=== PATIENT | male | born 2000 | race Caucasian/White ===

== ENCOUNTER 2022-10-10 18:49 | Inpatient (IN) ==
--- NOTE | 2022-10-10 19:21 | Emergency Department Note ---
Impression & Plan Bipolar disorder, Noncompliance, Cannabis abuse ED Provider Note ED Provider Note NAME: FLIP FAUSTIN AGE:22 SEX: Male : 2000 ARRIVES VIA: EMS INFORMANT: Patient ED PROVIDER(s): Lorene Nicholas DO CHIEF COMPLAINT: Mental health evaluation HPI: This is a 22-year-old male brought in as a 302 petition by ems. Patient lives with family and states he does not know why police showed up at his house or why he was brought in. Patient states he and his father argue about his use of marijuana which he thinks he needs for his knee pain and his anxiety. Patient states he vapes, does not use alcohol. 302 petitioning statement filled out by father states patient has been, increasingly aggressive and violent at home. Using marijuana daily. Patient states at times he also blacks out. Patient admits to using marijuana just prior to arrival. PAST MEDICAL HISTORY:See Below PAST SURGICAL HISTORY:See Below FAMILY HISTORY:See Below SOCIAL HISTORY:See Below HOME MEDICATIONS:See Below ALLERGIES:See Below VITALS:See Below PHYSICAL EXAMINATION: GENERAL: alert, well nourished, no distress, non-toxic EYE EXAM: normal conjunctiva, PERRL and EOM's grossly intact OROPHARYNX: no exudate, no erythema, lips, buccal mucosa, and tongue normal and mucous membranes are moist NECK: supple, no nuchal rigidity, no adenopathy, non-tender LUNGS: Clear to auscultation. Normal chest wall mechanics, no w/r/r HEART: no murmurs, S1 normal and S2 normal ABDOMEN: abdomen soft, non-tender, normo-active bowel sounds, no masses, no rebound or guarding. BACK: Back is symmetrical on inspection and there is no deformity, no midline tenderness, no CVA tenderness. SKIN: no rashes, petechiae, orbruising UPPER EXTREMITIES: upper extremities are grossly normal. FROM, nml pulses b/l. LOWER EXTREMITIES: No pitting edema. FROM, nml pulses b/l. NEURO EXAM: Normal sensorium, cranial nerves II-XII grossly intact, normal speech, no facial droop,nogross weakness of arms, no gross weakness of legs. Gross sensation intact. No ataxia. Vital Signs: reviewed and remarkable Differential Diagnosis: Differential diagnoses considered include mood disorder, infection, hypoglycemia, electrolyte abnormalities, cardiac sources, intracerebral event, toxicologic, neurologic, as well as others. MEDICAL DECISION MAKING: This is a 22-year-old male brought in with 302 petition statement by parents due to increased aggressive and violent behavior at home. Upon additional evaluation by case management they did find the patient does carry a prior diagnosis of bipolar disorder, typically manic, and has been noncompliant with medications. Patient admits to daily marijuana use but does not have a medical marijuana card. Patient is not currently seeing any mental health providers. Patient became aggressive and agitated here. Was given medication as he could not be verbally de-escalated or redirected. 302 upheld by me. Case signed out at change of shift to Dr. Villanueva. I do not suspect other occult medical etiology contributing to his current behavior given reassuring labs and imaging. Consultation(s): [] ER Treatment Provided: See below 2200: Patient became combative and agitated, screaming and yelling, spitting on staff. He was unable to be verbally de-escalated or redirected. He was unwilling to calm down and return to his room. Patient was given Ativan IM ini tially per my instruction after receiving a phone call from the nurse. While I was in speaking with other patients, I was contacted that the patient had continued to become aggressive, and again could not be redirected. Patient given additional IM Haldol and placed in four-point locked restraints. 2243: Patient still agitated despite being in four-point restraints. Additional IM meds added. Amira, casework specialist states she did refer to [facility] and found that the patient does carry a prior diagnosis of manic bipolar disorder. Patient appears to have been off any mental health medications since the fall. 2300: 302 signed by me. Diagnostics Interpreted By Me: -ECG: Normal sinus rhythm at 95, normal axis, normal QRS and QTc, nonspecific ST/T wave changes -Cardiac Monitoring: An order was placed for continuous cardiac monitoring. The monitor shows a rate of [] with [] rhythm. -Laboratory studies: As stated above and show below. -Imaging studies: [] Triage Nursing Note Reviewed Prior/Outside Records Reviewed Procedures: [] Critical Care: [] Past Med/Surg History Social History Smoking Status: Current every day smoker Tobacco Type: E-cigarettes / Vaping Preferred Language: Serbian Feels Safe at Home: Yes Results & Data (ED) Vital Signs Vital Signs - 24 hr 10/10/22 18:57 10/10/22 22:30 10/10/22 22:58 Temperature 36.5 C Temperature Source Oral Pulse Rate 122 H Pulse Rate [Right Radial] 90 98 H Pulse Rhythm Regular Pulse Rhythm [Right Radial] Regular Regular Pulse Strength Normal Respiratory Rate 22 20 14 Respiratory Effort / Characteristics Non-Labored Spontaneous Non-Labored Spontaneous Respiratory Depth Normal Normal Normal Respiratory Pattern Regular Regular Blood Pressure 168/117 H Blood Pressure [Right Arm] 96/76 L 97/67 L Blood Pressure Mean 134 Blood Pressure Mean [Right Arm] 82 77 Blood Pressure Position Sitting Pulse Oximetry 100 94 94 Oxygen Delivery Method Room Air Room Air Room Air Sepsis Recent Fever Within 48 Hours No Sepsis New/Unexplained Change in Mental Status No Sepsis Action Taken by Nursing No Action Required Laboratory Data 10/10/22 19:30 10/10/22 19:30 Lab Results 10/10/22 10/10/22 10/10/22 Range/Units 19:04 19:04 19:30 WBC 8.46 (4.8-10.8) K/ul RBC 5.18 (4.70-6.10) M/uL Hgb 16.6 (14.0-18.0) g/dl Hct 46.9 (42.0-52.0) % MCV 90.5 (80.0-100.0) fL MCH 32.0 (25.0-34.0) pg MCHC 35.4 (32.0-36.0) g/dL RDW Std Deviation 42.9 (36.4-46.3) fL RDW Coeff of Solitario 13.0 (11.5-14.5) % Plt Count 311 (130-400) K/uL MPV 9.0 L (9.4-12.4) fL Immature Gran % (Auto) 0.1 % Neut % (Auto) 60.5 % Lymph % (Auto) 30.7 % Alpine % (Auto) 6.5 % Eos % (Auto) 1.8 % Baso % (Auto) 0.4 % Neut # (Auto) 5.12 (1.40-6.50) K/uL Lymph # (Auto) 2.60 (1.2-3.4) K/uL Alpine # (Auto) 0.55 (0.11-0.59) K/uL Eos # (Auto) 0.15 (0-0.50) K/uL Baso # (Auto) 0.03 (0-0.2) K/uL Immature Gran # (Auto) 0.01 (0.01-0.20) K/uL Sodium (136-145) mmol/L Potassium (3.5-5.1) mmol/L Chloride (98-107) mmol/L Carbon Dioxide (21-32) mmol/L Anion Gap (3-11) BUN (6-23) mg/dl Creatinine (0.6-1.4) mg/dl Est Cr Clr Drug Dosing Est GFR ( Amer) ml/min Est GFR (Non-Af Amer) ml/min BUN/Creatinine Ratio (10-20) Glucose (70-99(Fasting)) mg/dl Calcium (8.5-10.1) mg/dl Total Bilirubin (0.2-1.0) mg/dl AST (13-39) U/L ALT (7-52) U/L Alkaline Phosphatase (34-104) U/L Total Protein (6.0-8.3) gm/dl Albumin (3.4-5.0) gm/dl Globulin (2.5-4.0) gm/dl Albumin/Globulin Ratio (0.9-2) TSH (0.300-4.500) uIu/ml Free T4 (0.61-1.60) ng/dl Urine Color Yellow Urine Appearance Clear (Clear) Urine pH 6.5 (4.5-7.5) Ur Specific Norton 1.025 (1.000-1.030) Urine Protein Trace H (Negative) Urine Glucose (UA) Negative (Negative) Urine Ketones Trace H (Negative) Urine Blood Negative (Negative) Urine Nitrite Negative (Negative) Urine Bilirubin Negative (Negative) Urine Urobilinogen Negative (Negative) Ur Leukocyte Esterase Negative (Negative) Urine WBC (Auto) 1-5 (0-5) /hpf Urine RBC (Auto) 0-4 (0-4) /hpf U Hyaline Cast (Auto) 5-10 H (0-5) /lpf U Epithel Cells (Auto) 10-20 H (0-5) /lpf Urine Bacteria (Auto) Negative (Negative) Salicylates (3.0-30) mg/dl Urine Opiates Screen Neg (Neg) Ur Methadone, Qual Neg (Neg) Acetaminophen (10-30) ug/ml Urine Barbiturates Neg (Neg) Ur Phencyclidine (PCP) Neg (Neg) U Amphetamin/Meth Scrn Neg (Neg) MDMA (Ecstasy) Screen Neg (Neg) U Benzodiazepines Scrn Neg (Neg) Ur Cocaine Metabolite Neg (Neg) U Marijuana (THC) Screen Pos H (Neg) Ethyl Alcohol mg/dL (<10.0) mg/dl 10/10/22 10/10/22 10/10/22 Range/Units 19:30 19:30 19:30 WBC (4.8-10.8) K/ul RBC (4.70-6.10) M/uL Hgb (14.0-18.0) g/dl Hct (42.0-52.0) % MCV (80.0-100.0) fL MCH (25.0-34.0) pg MCHC (32.0-36.0) g/dL RDW Std Deviation (36.4-46.3) fL RDW Coeff of Solitario (11.5-14.5) % Plt Count (130-400) K/uL MPV (9.4-12.4) fL Immature Gran % (Auto) % Neut % (Auto) % Lymph % (Auto) % Alpine % (Auto) % Eos % (Auto) % Baso % (Auto) % Neut # (Auto) (1.40-6.50) K/uL Lymph # (Auto) (1.2-3.4) K/uL Alpine # (Auto) (0.11-0.59) K/uL Eos # (Auto) (0-0.50) K/uL Baso # (Auto) (0-0.2) K/uL Immature Gran # (Auto) (0.01-0.20) K/uL Sodium 141 (136-145) mmol/L Potassium 3.9 (3.5-5.1) mmol/L Chloride 103 (98-107) mmol/L Carbon Dioxide 28 (21-32) mmol/L Anion Gap 10 (3-11) BUN 12 (6-23) mg/dl Creatinine 1.07 (0.6-1.4) mg/dl Est Cr Clr Drug Dosing Not Reportable Est GFR ( Amer) 114.4 ml/min Est GFR (Non-Af Amer) 98.7 ml/min BUN/Creatinine Ratio 11.2 (10-20) Glucose 120 H (70-99(Fasting)) mg/dl Calcium 9.5 (8.5-10.1) mg/dl Total Bilirubin 1.0 (0.2-1.0) mg/dl AST 25 (13-39) U/L ALT 20 (7-52) U/L Alkaline Phosphatase 57 (34-104) U/L Total Protein 7.5 (6.0-8.3) gm/dl Albumin 4.7 (3.4-5.0) gm/dl Globulin 2.8 (2.5-4.0) gm/dl Albumin/Globulin Ratio 1.7 (0.9-2) TSH 0.209 L (0.300-4.500) uIu/ml Free T4 1.19 (0.61-1.60) ng/dl Urine Color Urine Appearance (Clear) Urine pH (4.5-7.5) Ur Specific Norton (1.000-1.030) Urine Protein (Negative) Urine Glucose (UA) (Negative) Urine Ketones (Negative) Urine Blood (Negative) Urine Nitrite (Negative) Urine Bilirubin (Negative) Urine Urobilinogen (Negative) Ur Leukocyte Esterase (Negative) Urine WBC (Auto) (0-5) /hpf Urine RBC (Auto) (0-4) /hpf U Hyaline Cast (Auto) (0-5) /lpf U Epithel Cells (Auto) (0-5) /lpf Urine Bacteria (Auto) (Negative) Salicylates < 3.0 L (3.0-30) mg/dl Urine Opiates Screen (Neg) Ur Methadone, Qual (Neg) Acetaminophen < 3 L (10-30) ug/ml Urine Barbiturates (Neg) Ur Phencyclidine (PCP) (Neg) U Amphetamin/Meth Scrn (Neg) MDMA (Ecstasy) Screen (Neg) U Benzodiazepines Scrn (Neg) Ur Cocaine Metabolite (Neg) U Marijuana (THC) Screen (Neg) Ethyl Alcohol mg/dL (<10.0) mg/dl 10/10/22 Range/Units 19:30 WBC (4.8-10.8) K/ul RBC (4.70-6.10) M/uL Hgb (14.0-18.0) g/dl Hct (42.0-52.0) % MCV (80.0-100.0) fL MCH (25.0-34.0) pg MCHC (32.0-36.0) g/dL RDW Std Deviation (36.4-46.3) fL RDW Coeff of Solitario (11.5-14.5) % Plt Count (130-400) K/uL MPV (9.4-12.4) fL Immature Gran % (Auto) % Neut % (Auto) % Lymph % (Auto) % Alpine % (Auto) % Eos % (Auto) % Baso % (Auto) % Neut # (Auto) (1.40-6.50) K/uL Lymph # (Auto) (1.2-3.4) K/uL Alpine # (Auto) (0.11-0.59) K/uL Eos # (Auto) (0-0.50) K/uL Baso # (Auto) (0-0.2) K/uL Immature Gran # (Auto) (0.01-0.20) K/uL Sodium (136-145) mmol/L Potassium (3.5-5.1) mmol/L Chloride (98-107) mmol/L Carbon Dioxide (21-32) mmol/L Anion Gap (3-11) BUN (6-23) mg/dl Creatinine (0.6-1.4) mg/dl Est Cr Clr Drug Dosing Est GFR ( Amer) ml/min Est GFR (Non-Af Amer) ml/min BUN/Creatinine Ratio (10-20) Glucose (70-99(Fasting)) mg/dl Calcium (8.5-10.1) mg/dl Total Bilirubin (0.2-1.0) mg/dl AST (13-39) U/L ALT (7-52) U/L Alkaline Phosphatase (34-104) U/L Total Protein (6.0-8.3) gm/dl Albumin (3.4-5.0) gm/dl Globulin (2.5-4.0) gm/dl Albumin/Globulin Ratio (0.9-2) TSH (0.300-4.500) uIu/ml Free T4 (0.61-1.60) ng/dl Urine Color Urine Appearance (Clear) Urine pH (4.5-7.5) Ur Specific Norton (1.000-1.030) Urine Protein (Negative) Urine Glucose (UA) (Negative) Urine Ketones (Negative) Urine Blood (Negative) Urine Nitrite (Negative) Urine Bilirubin (Negative) Urine Urobilinogen (Negative) Ur Leukocyte Esterase (Negative) Urine WBC (Auto) (0-5) /hpf Urine RBC (Auto) (0-4) /hpf U Hyaline Cast (Auto) (0-5) /lpf U Epithel Cells (Auto) (0-5) /lpf Urine Bacteria (Auto) (Negative) Salicylates (3.0-30) mg/dl Urine Opiates Screen (Neg) Ur Methadone, Qual (Neg) Acetaminophen (10-30) ug/ml Urine Barbiturates (Neg) Ur Phencyclidine (PCP) (Neg) U Amphetamin/Meth Scrn (Neg) MDMA (Ecstasy) Screen (Neg) U Benzodiazepines Scrn (Neg) Ur Cocaine Metabolite (Neg) U Marijuana (THC) Screen (Neg) Ethyl Alcohol mg/dL < 10.0 (<10.0) mg/dl Administered Medications Discontinued Medications Acetaminophen (Acetaminophen 325 Mg Tab) 650 mg PO NOW STA Stop: 10/10/22 21:41 Last Admin: 10/10/22 22:02 Dose: Not Given Documented By: BEZ Haloperidol Lactate (Haloperidol Lactate 5 Mg/Ml 1 Ml Vial) Confirm Administered Dose 5 mg .ROUTE .[facility] Stop: 10/10/22 22:11 Last Admin: 10/10/22 22:14 Dose: 5 mg Documented By: BEZ Lorazepam (Lorazepam 1 Mg Tab) 2 mg PO NOW STA Stop: 10/10/22 21:41 Last Admin: 10/10/22 22:03 Dose: Not Given Documented By: BEZ Lorazepam (Lorazepam 2 Mg/1 Ml Vial) 2 mg IM NOW STA Stop: 10/10/22 21:46 Last Admin: 10/10/22 22:02 Dose: 2 mg Documented By: BEZ Lorazepam (Lorazepam 2 Mg/1 Ml Vial) 2 mg IM NOW STA Stop: 10/10/22 22:45 Last Admin: 10/10/22 22:48 Dose: Not Given Documented By: BEZ Imaging Data Radiologist's Impression: Head CT 10/10/22 19:14 CT OF THE HEAD WITHOUT CONTRAST CLINICAL HISTORY: Syncope. COMPARISON STUDY: No previous studies for comparison. CT DOSE: 537.48 mGy.cm TECHNIQUE: Helical axial images of the head were obtained without IV contrast. Automated exposure control was utilized for the study. A dose lowering technique was utilized adhering to the principles of ALARA. FINDINGS: No acute intracranial hemorrhage, midline shift or mass effect is present. The ventricular system is unremarkable. The basal cisterns are patent. No extra-axial collections are present. There are no findings to suggest acute dural sinus thrombosis or acute territorial infarct. There is no calvarial fracture. Visualized portions of the sinuses and mastoid air cells are clear. IMPRESSION: No acute intracranial findings. ACT 112: Negative or not required by law. Electronically signed by: Eloy Lala M.D. 10/10/2022 7:57 PM Discharge Plan Visit Data Chief Complaint: Mental Health Evaluation ED Provider: Lorene Nicholas Discharge Problem: Bipolar disorder, Noncompliance, Cannabis abuse Patient Disposition: Still a Patient Condition: Good Forms Stand Alone Forms: [facility], Suicide Prevention Resources Referrals Referrals: PCP,NO [Primary Care Provider] -
[2022-10-10 19:26] LABS: Appearance Urine Clear (Clear); Bacteria Urine Automated Negative (Negative); Bilirubin Urine Negative (Negative); Blood Urine Negative (Negative); Color Urine Yellow; Glucose Urine UA Negative (Negative); Ketones Urine Trace (Negative); Leukocyte Esterase Urine Negative (Negative); Nitrite Urine Negative (Negative); Protein Urine Trace (Negative); RBC Urine Automated 0-4 /hpf (0-4); Specific Gravity Urine 1.025 (1.000-1.030); Urobilinogen Urine Negative (Negative); pH Urine 6.5 (4.5-7.5)
[2022-10-10 19:49] LABS: Amphetamines+Metham, Urine Neg (Neg); Barbiturates, Urine Neg (Neg); Benzodiazepine, Urine Neg (Neg); Cocaine, Urine Neg (Neg); MDMA (Ecstacy), Urine Neg (Neg); Methadone, Urine Neg (Neg); Opiate, Urine Neg (Neg); Phencyclidine, Urine Neg (Neg)
--- NOTE | 2022-10-10 19:59 | CT Scan Report ---
CT OF THE HEAD WITHOUT CONTRAST CLINICAL HISTORY: Syncope. COMPARISON STUDY: No previous studies for comparison. CT DOSE: 537.48 mGy.cm TECHNIQUE: Helical axial images of the head were obtained without IV contrast. Automated exposure con trol was utilized for the study. A dose lowering technique was utilized adhering to the principles o f ALARA. FINDINGS: No acute intracranial hemorrhage, midline shift or mass effect is present. The ventricular system is unremarkable. The basal cisterns are patent. No extra-axial collections are present. There are no findings to suggest acute dural sinus thrombosis or acute territorial infarct. There is no eliazar varial fracture. Visualized portions of the sinuses and mastoid air cells are clear. IMPRESSION: No acute intracranial findings. ACT 112: Negative or not required by law. Electronically signed by: Eloy Lala M.D. 10/10/2022 7:57 PM
[2022-10-10 20:04] LABS: Basophils # (auto) 0.03 K/uL (0-0.2); Basophils % (auto) 0.4 %; Eosinophils # (auto) 0.15 K/uL (0-0.50); Eosinophils % (auto) 1.8 %; Hematocrit (blood only) 46.9 % (42.0-52.0); Hemoglobin 16.6 g/dl (14.0-18.0); Immature Granulocytes # (auto) 0.01 K/uL (0.01-0.20); Immature Granulocytes % (auto) 0.1 %; Lymphocytes % (auto) 30.7 %; Mean Corpuscular Hgb Conc 35.4 g/dL (32.0-36.0); Mean Corpuscular Volume 90.5 fL (80.0-100.0); Monocytes # (auto) 0.55 K/uL (0.11-0.59); Monocytes % (auto) 6.5 %; Neutrophils # (auto) 5.12 K/uL (1.40-6.50); Neutrophils % (auto) 60.5 %; Platelet Count 311 K/uL (130-400); RDW Standard Deviation 42.9 fL (36.4-46.3); Red Blood Count 5.18 M/uL (4.70-6.10); White Blood Count 8.46 K/ul (4.8-10.8)
[2022-10-10 20:25] LABS: Albumin Level 4.7 gm/dl (3.4-5.0); Anion Gap 10 (3-11); Calcium 9.5 mg/dl (8.5-10.1); Carbon Dioxide 28 mmol/L (21-32); Chloride 103 mmol/L (98-107); Potassium 3.9 mmol/L (3.5-5.1); Sodium 141 mmol/L (136-145)
[2022-10-10 20:31] LABS: Alanine Aminotransferase 20 U/L (7-52); Albumin Globulin Ratio 1.7 (0.9-2); Alkaline Phosphatase 57 U/L (34-104); Aspartate Aminotransferase 25 U/L (13-39); BUN Creatinine Ratio 11.2 (10-20); Blood Urea Nitrogen 12 mg/dl (6-23); Est GFR (African American) 114.4 ml/min; Est GFR (Non-African American) 98.7 ml/min; Globulin 2.8 gm/dl (2.5-4.0); Glucose 120 mg/dl (70-99(Fasting)); Total Protein 7.5 gm/dl (6.0-8.3)
[2022-10-10 20:33] LABS: Acetaminophen < 3 ug/ml (10-30); Salicylate < 3.0 mg/dl (3.0-30)
[2022-10-10 20:39] LABS: Thyroid Stimulating Hormone 0.209 uIu/ml (0.300-4.500)
[2022-10-10 21:12] LABS: T4 Free Thyroxine 1.19 ng/dl (0.61-1.60)
[2022-10-10] MEDS ORDERED: LORazepam 1 MG TAB PO STA (21:40)
[2022-10-10] MEDS ORDERED: ACETAMINOPHEN 325 MG TAB PO STA (21:40)
[2022-10-10] MEDS ORDERED: LORazepam 2 MG/1 ML VIAL IM STA ×2 (21:45→22:44)
[2022-10-10] MEDS ORDERED: HALOPERIDOL LACTATE 5 MG/ML 1 ML VIAL ONE (22:10)
--- NOTE | 2022-10-11 04:20 | Emergency Department Note ---
ED Visit Note ED psychiatric observation note Patient is under 302 for bipolar and kristopher received Haldol and Ativan and restraints and is now not restrained There were no issues during the emergency department shift supervisor observation time Disposition is still pending due to a bed search .
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
--- NOTE | 2022-10-11 09:59 | Electrocardiogram Report ---
Test Reason : Blood Pressure : / mmHG Vent. Rate : 095 BPM Atrial Rate : 095 BPM P-R Int : 124 ms QRS Dur : 090 ms QT Int : 328 ms P-R-T Axes : 086 085 046 degrees QTc Int : 412 ms Poor data quality, interpretation may be adversely affected Normal sinus rhythm Possible Left atrial enlargement Borderline ECG No previous ECGs available Confirmed by Jose Gaston ([id number]) on 10/11/2022 9:59:26 AM Referred By: REFERRED SELF Confirmed By:Jose Gaston
[2022-10-11] MEDS ORDERED: NICOTINE 14 MG/24 HR PATCH TD SCH ×2 (13:00→19:00)
--- NOTE | 2022-10-11 14:29 | Emergency Department Note ---
ED Visit Note 1428: Signout from Dr. Lynn. 22-year-old male with drug abuse with suicidal or homicidal ideation history of bipolar disorder. Patient 302. Medically cleared. Awaiting placement. 1919: Patient admitted to [facility]. .
[2022-10-11] MEDS ORDERED: OLANZapine ZYDIS 5 MG ORALLY DIS. TAB PO STA (17:53)
[2022-10-11] MEDS ORDERED: BISMUTH SUBSALICYLATE LIQD 236 ML PO PRN (19:42)
[2022-10-11] MEDS ORDERED: ACETAMINOPHEN 325 MG TAB PO PRN (19:42)
[2022-10-11] MEDS ORDERED: hydrOXYzine HCl 25 MG TAB PO PRN (19:42)
[2022-10-11] MEDS ORDERED: SODIUM CHLORIDE 0.65% NA SOLN 45 ML (OCEAN) PRN (19:42)
[2022-10-11] MEDS ORDERED: MAGNESIUM HYDROXIDE SUSP 30 ML UDC PO PRN (19:42)
[2022-10-11] MEDS ORDERED: Patient's ALLERGY Info needs ENTERED SCH (19:45)
[2022-10-11] MEDS: hydrOXYzine HCl 25 MG TAB PO PRN (21:52)
[2022-10-11] MEDS: OLANZapine ZYDIS 5 MG ORALLY DIS. TAB PO PRN (21:52)
[2022-10-12] MEDS ORDERED: NICOTINE 14 MG/24 HR PATCH TD SCH (09:00)
[2022-10-12] MEDS: ALUMINUM/MAGNESIUM SUSP 30 ML UDC PO PRN ×2 (09:35→20:06)
[2022-10-12] MEDS ORDERED: BENZONATATE 100 MG CAPSULE PO PRN (11:33)
[2022-10-12] MEDS: NICOTINE POLACRILEX 2 MG GUM MT PRN ×3 (11:51→19:13)
--- NOTE | 2022-10-12 12:35 | History & Physical ---
Date of Service October 12, 2022 Impression / Recommendations (1) Bipolar I disorder, most recent episode manic, severe with psychotic features: (2) Nicotine use disorder: (3) Cannabis use disorder: Plan Based on initial response to oral olanzapine given in the ED, will start olanza pine 10 mg PO BID, continuing olanzapine ODT 5 mg or IM 5 mg Q6HR PRN kristopher or psychosis Will need to provide substantial nicotine replacement to prevent withdrawal, but pt will accept only gum so this may be only partially effective Suicide Risk Level Suicide Risk Level: Moderate (q15 min suicide checks) Risk Factors Assessment Male: Yes : Yes Do You Have Access To A Gun?: No (bro has gun but has secured) Health Problems: No Mental Health Diagnoses: Yes Substance Use Disorders: Yes Previous Attempt: No Previous Psychiatric Hospitalization: Yes Protective Factors Assessment Employed: No (Quit job last week, according to pt's Dad) Supportive Family: Yes Psychiatric History Identifying Data FLIP FAUSTIN is a 22-year-old M who currently lives with his mother, father, and older brother, has a history of schizoaffective disorder, and was admitted on 10/11/22 19:21 on a 302 involuntary commitment for kristopher and aggression. Chief Complaint "The FBI had no busines tying me to a bed!". History of Present Illness 22 y/o man with a history of bipolar disorder who has been "vaping" a great deal with the intent of "getting at least 60 mg of nicotine" per day, believing that this helps him think more clearly and to stay awake longer. He has also been using cannabis heavily as nonprescribed "medical marijuana" for knee pain. He stopped medication "a long time ago" because he "didn't need it". He hasn't slept much at all for the past 6 days and arguments with his father over the vaping and cannabis have been escalating until he made threats. He reports that "the FBI broke down the door" and took him to a cell where they tied him to a bed and injected him with medication. Later he acknowledged it could have been local police who "knocked on the door then pushed in" and, for all he knows, might have broken it. He readily acknowledges bitter arguments with his father but doesn't agree that anyone could think he was threatening. ED notes clearly document threatening, aggressive behavior including spitting at staff. Pt did agree last night to oral olanzapine which appeared to help him deescalate and to get some sleep. He is amenable to continuing it and says he'll do anything we recommend except take risperidone, which he says caused a hand tremor. Pt presents as excited and elevated, at times expansive and at times irritable. He is very talkative with decreased latency of speech, increased rate and duration, and is a bit loud but not shouting. 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 It is in the process of developing "[email or web address]". 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 He is somewhat evasive about whether he lives on his own or at home (he lives at home) or whether he's attending college or not (he's not, saying he completed a bachelor's degree in 2 years). Past Psychiatric History Previous Psych History: Carries diagnosis of Bipolar I Disorder but not in treatment recently Current Psychiatric Diagnosis: Bipolar 1, manic episodes Previous Psych Admissions: 2 previous admissions in [place], 1 in [place], [place] Do You Have Access To A Gun?: No (bro has gun but has secured) History of Previous Suicide Attempt: No Past Medication Trials: risperidone reported to have caused hand tremor Allergies Allergy/AdvReac Type Severity Reaction Status Date / Time No Known Allergies Allergy Unverified 10/11/22 19:47 Family History Family History of: Anxiety and Bipolar Family Mental Health History Comment: Reports father has bipolar disorder Alcohol History Hx of Alcohol Use Over the Past 12 Months: Yes (1-2x weekly, just turned 22) AUDIT Total Score: 1 Smoking Use Have You Smoked or Used Tobacco Products in the Last 30 Days: Yes tobacco type: e-cigarettes Smoking Status: Current every day smoker Smoking packs per day: 1 Substance History Hx of Prescription Med Misuse Over the Past 12 Months: No (Unknown, patient not cooperative, unable to assess) Hx of Over the Counter Med Misuse Over the Past 12 Months: No Hx of Inhalent Misuse Over the Past 12 Months: No Hx of Organic Substance Use Over the Past 12 Months: Yes (Daily marijuana vaping, according to pt's Dad and +for marijuana) Hx of Illegal Substances/Street Drug Use Over Past 12 Months: Yes Problems as a Result of Past Substance Use: None Identified Problems as a Result of Past Substance Use Comments: Unknown, patient not cooperative, unable to assess using cannabis "heavily" Personal History Living Arrangements: Home Highest Grade Completed: High School Graduate Highest Grade Completed Comment: states he completed high school 6 months early 2 years, "Advanced BA degree" wants to go back to school to further education for ph.d (?) Marital Status: Single Number Of Children: 0 Beliefs That Will Affect Care: None Patient History Social History Smoking Status: Current every day smoker Tobacco Type: E-cigarettes / Vaping Preferred Language: Tajik Communication Ability: Effective Associate Professor Of Psychology Required: No Beliefs That Will Affect Care: None Feels Safe at Home: Yes Gender Identity: Male Assistive Devices: Glasses Physical Exam Psychiatric: Orientation: alert and oriented x 3 Apperance: appropriately dressed and appropriately groomed Eye Contact: + fair eye contact Motor Behavior: + psychomotor agitation Speech: + pressured speech Affect: + labile affect Mood: + irritable mood Thought Process: + circumstantial thought process and + flight of ideas Thought Content: + persecution grandiosity Suicidal Thoughts: denies suicidal thoughts Homicidal Thoughts: denies homicidal thoughts Hallucinations: no auditory hallucinations and no visual hallucinations Cognition: recent memory grossly intact and remote memory grossly intact; + attention not intact Estimated Intelligence: average estimated intelligence Insight: + impaired insight Judgment: + impaired judgement Vital Signs (Past 24 Hours): Last Vital Signs Temp 36.4 C L 10/12/22 06:46 Pulse 48 L 10/12/22 06:47 Resp 16 10/12/22 06:46 BP 115/77 10/12/22 06:47 Pulse Ox 98 10/11/22 05:47 O2 Del Method 10/11/22 05:47 Exam Statement: A physical exam was performed in the ED by Dr. Nicholas for the purposes of medical clearance. I accept that physical as correct and adequate for the purposes of the inpatient physical exam. Results & Data ([facility]) Laboratory Results Laboratory Results - last 24 hr 10/11/22 16:13 SARS-CoV-2, RNA, NAAT NEGATIVE Current Inpatient Medications Current Inpatient Medications: Current Inpatient Medications Acetaminophen (Acetaminophen 325 Mg Tab) 650 mg PO Q4H PRN PRN Reason: Headache or Minor Fever Stop: 11/10/22 19:41 Al Hydrox/Mg Hydrox/Simethicone (Aluminum/Magnesium Susp 30 Ml Udc) 30 ml PO Q4H PRN PRN Reason: GI Upset Stop: 11/10/22 19:41 Last Admin: 10/12/22 09:35 Dose: 30 ml Benzonatate (Benzonatate 100 Mg Capsule) 100 mg PO TID PRN PRN Reason: Cough Stop: 11/11/22 11:32 Bismuth Subsalicylate (Bismuth Subsalicylate Liqd 236 Ml) 15 ml PO PRN PRN PRN Reason: Loose Stool Stop: 11/10/22 19:41 Hydroxyzine HCl (Hydroxyzine Hcl 25 Mg Tab) 50 mg PO HSZ PRN PRN Reason: Insomnia Stop: 11/10/22 19:41 Last Admin: 10/11/22 21:52 Dose: 50 mg Hydroxyzine HCl (Hydroxyzine Hcl 25 Mg Tab) 25 mg PO Q4H PRN PRN Reason: Anxiety Stop: 11/10/22 19:41 Magnesium Hydroxide (Magnesium Hydroxide Susp 30 Ml Udc) 30 ml PO DAILY PRN PRN Reason: Constipation Stop: 11/10/22 19:41 Menthol (Cough Drop (Sugar Free) Huy 24 Huy/1 Box) 1 huy BUCCAL Q2HWA PRN PRN Reason: Sore Throat Stop: 11/11/22 11:32 Nicotine Polacrilex (Nicotine Polacrilex 2 Mg Gum) 2 piece MT PRN PRN PRN Reason: Nicotine Withdrawal Stop: 11/11/22 11:31 Last Admin: 10/12/22 11:51 Dose: 2 piece Olanzapine (Olanzapine Zydis 5 Mg Orally Dis. Tab) 5 mg PO Q6 PRN PRN Reason: kristopher, psychosis Stop: 11/10/22 19:42 Last Admin: 10/11/22 21:52 Dose: 5 mg Olanzapine (Olanzapine Zydis 10 Mg Orally Dis. Tab) 10 mg PO BID [place] Stop: 11/11/22 11:44 Last Admin: 10/12/22 11:52 Dose: 10 mg Sodium Chloride (Sodium Chloride 0.65% Na Soln 45 Ml ([place])) 1 - 2 sprays NA PRN PRN PRN Reason: Nasal Dryness/Congestion Stop: 11/10/22 19:41 Last Admin: 10/12/22 07:29 Dose: 1 sprays
[2022-10-12] MEDS: OLANZapine ZYDIS 5 MG ORALLY DIS. TAB PO PRN (14:55)
[2022-10-12] MEDS: COUGH DROP (SUGAR FREE) LOZ 24 LOZ/1 BOX BUCCAL PRN ×2 (15:25→16:45)
[2022-10-12] MEDS: hydrOXYzine HCl 25 MG TAB PO PRN (21:11)
[2022-10-12 21:22] LABS: Marijuana Quant, GCMS Urine 1502 ng/mL (<5)
[2022-10-13] MEDS: NICOTINE POLACRILEX 2 MG GUM MT PRN ×4 (07:04→19:55)
[2022-10-13] MEDS: COUGH DROP (SUGAR FREE) LOZ 24 LOZ/1 BOX BUCCAL PRN ×3 (07:55→22:02)
--- NOTE | 2022-10-13 09:10 | Psychiatric Progress Note ---
Date of Service October 13, 2022 Impression / Recommendations Impression 22 year old with a history of BPAD who was admitted for acute kristopher with aggression and decreased sleep on 302 commitment. Diagnostically consistent with acute kristopher d/t BPAD, may also be component of nicotine withdrawal given significant vaping use prior to admission. The patient is deemed unstable and requires psychiatric hospitalization for diagnostic clarification, safety and stabilization, medication management and development of further coping skills. MNPR due to acute kristopher with poor boundaries with peers 10/13/2022: remains hyperverbal with significant grandiosity and flight of ideas. Sleep improving a bit with olanzapine and he's tolerating this well. Will need fasting lipid panel in a few days once better able to tolerate this. Discussed medication treatment options in detail including various mood stabilizers including olanzapine, lithium, depakote, alternative antipsychotics. Discussed risks, benefits and alternatives. Patient would like to start and consented to depakote for acute kristopher andf to continue with olanzapine for mood stabilization. Reviewed side effects including but not limited to: movement (TD, NMS), cardiac (QTc prolongation), and metabolic (stroke, insulin resistance) and necessity for fasting lipid and glucose labwork and AIMS done with score of 0 and liver damage/side effects with depakote and need for routine monitoring. Baseline labs of CBC with diff, LFTs, electrolytes, and weight were preformed and WNL. (1) Bipolar I disorder, most recent episode manic, severe with psychotic features: (2) Nicotine use disorder: (3) Cannabis use disorder: Plan 10/13/22: Start Deapkote DR 250mg BID. Continue olanzapine. Will get fasting lipid panel and glucose in a few days with Depakote level check. 10/12/22: Based on initial response to oral olanzapine given in the ED, will start olanzapine 10 mg PO BID, continuing olanzapine ODT 5 mg or IM 5 mg Q6HR PRN kristopher or psychosis Will need to provide substantial nicotine replacement to prevent withdrawal, but pt will accept only gum so this may be only partially effective Suicide Risk Level Suicide Risk Level: Moderate (q15 min suicide checks) (denies SI but mood lability with kristopher. Agrees to let nursing know if he feels unsafe or unable to remain safe ) Risk Factors Assessment Male: Yes : Yes Do You Have Access To A Gun?: No (bro has gun but has secured) Health Problems: No Mental Health Diagnoses: Yes Substance Use Disorders: Yes Previous Attempt: No Previous Psychiatric Hospitalization: Yes Protective Factors Assessment Employed: No (Quit job last week, according to pt's Dad) Supportive Family: Yes Interval History Identifying Information FLIP FAUSTIN is a 22-year-old M who currently lives with his mother, father, an d older brother, has a history of schizoaffective disorder, and was admitted on 10/11/22 19:21 on a 302 involuntary commitment for kristopher and aggression. Chief Complaint "I'm accepted to [facility] but I could also go to [place] or [facility], I've given research pitches to Rodrigo Raymundo". 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 Hyperverbal with non-stop speech but able to interrupt. Accepting po olanzapine. 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 Very intrusive with peers as desires to talk non-stop. Attending groups but requires freq re-direction. Feels he needs more nicotine replacement due to high amount of vaping in outpatient setting, frustrated that he could not get nicotine gum overnight. He likes the olanzapine, feels it has resolved the "depersonalization" sense he had before coming to the hospital of "being a spectator of my own body". Physical Exam Psychiatric Orientation: alert and oriented x 3 Apperance: appropriately dressed and appropriately groomed Eye Contact: + fair eye contact Motor Behavior: steady gait and station and + psychomotor agitation (walking and moving a lot) Speech: + pressured speech (hyperverbal ) Affect: + labile affect Mood: + anxious mood Thought Process: + circumstantial thought process and + flight of ideas Thought Content: + paranoid and + delusions (grandiose) Suicidal Thoughts: denies suicidal thoughts Homicidal Thoughts: denies homicidal thoughts Hallucinations: no auditory hallucinations and no visual hallucinations Cognition: recent memory grossly intact and remote memory grossly intact; + attention not intact Estimated Intelligence: average estimated intelligence Insight: + impaired insight Judgment: + impaired judgement Vital Signs (Past 24 Hours) Last Vital Signs Temp 36.4 C L 10/13/22 06:44 Pulse 54 L 10/13/22 06:45 Resp 18 10/13/22 06:44 BP 128/82 10/13/22 06:45 Pulse Ox 98 10/11/22 05:47 O2 Del Method 10/11/22 05:47 Results & Data ([facility]) Laboratory Results Laboratory Results - last 24 hr 10/10/22 19:04 U Marijuana THC Carboxy 1502 H Drug Screen Comment SEE NOTE Current Inpatient Medications Current Inpatient Medications: Current Inpatient Medications Acetaminophen (Acetaminophen 325 Mg Tab) 650 mg PO Q4H PRN PRN Reason: Headache or Minor Fever Stop: 11/10/22 19:41 Al Hydrox/Mg Hydrox/Simethicone (Aluminum/Magnesium Susp 30 Ml Udc) 30 ml PO Q4H PRN PRN Reason: GI Upset Stop: 11/10/22 19:41 Last Admin: 10/12/22 20:06 Dose: 30 ml Benzonatate (Benzonatate 100 Mg Capsule) 100 mg PO TID PRN PRN Reason: Cough Stop: 11/11/22 11:32 Bismuth Subsalicylate (Bismuth Subsalicylate Liqd 236 Ml) 15 ml PO PRN PRN PRN Reason: Loose Stool Stop: 11/10/22 19:41 Hydroxyzine HCl (Hydroxyzine Hcl 25 Mg Tab) 50 mg PO HSZ PRN PRN Reason: Insomnia Stop: 11/10/22 19:41 Last Admin: 10/12/22 21:11 Dose: 50 mg Hydroxyzine HCl (Hydroxyzine Hcl 25 Mg Tab) 25 mg PO Q4H PRN PRN Reason: Anxiety Stop: 11/10/22 19:41 Magnesium Hydroxide (Magnesium Hydroxide Susp 30 Ml Udc) 30 ml PO DAILY PRN PRN Reason: Constipation Stop: 11/10/22 19:41 Menthol (Cough Drop (Sugar Free) Huy 24 Huy/1 Box) 1 huy BUCCAL Q2HWA PRN PRN Reason: Sore Throat Stop: 11/11/22 11:32 Last Admin: 10/13/22 07:55 Dose: 1 huy Nicotine Polacrilex (Nicotine Polacrilex 2 Mg Gum) 2 piece MT PRN PRN PRN Reason: Nicotine Withdrawal Stop: 11/11/22 11:31 Last Admin: 10/13/22 07:04 Dose: 2 piece Olanzapine (Olanzapine Zydis 5 Mg Orally Dis. Tab) 5 mg PO Q6 PRN PRN Reason: kristopher, psychosis Stop: 11/10/22 19:42 Last Admin: 10/12/22 14:55 Dose: 5 mg Olanzapine (Olanzapine Zydis 10 Mg Orally Dis. Tab) 10 mg PO BID [place] Stop: 11/11/22 11:44 Last Admin: 10/13/22 07:46 Dose: 10 mg Sodium Chloride (Sodium Chloride 0.65% Na Soln 45 Ml ([place])) 1 - 2 sprays NA PRN PRN PRN Reason: Nasal Dryness/Congestion Stop: 11/10/22 19:41 Last Admin: 10/12/22 07:29 Dose: 1 sprays Mental Health & Subst Abuse Tx Therapist Name of Therapist: none Metal Pourer Name of Metal Pourer: none Post Discharge Appointments Primary Care Physician Name Of Family Doctor/PCP: none
[2022-10-13] MEDS: DIVALPROEX DELAY RELEASE 250 MG TABEC PO SCH ×2 (12:19→20:51)
[2022-10-14] MEDS: ALUMINUM/MAGNESIUM SUSP 30 ML UDC PO PRN (01:50)
[2022-10-14] MEDS: NICOTINE POLACRILEX 2 MG GUM MT PRN ×4 (05:25→18:55)
[2022-10-14] MEDS: DIVALPROEX DELAY RELEASE 250 MG TABEC PO SCH (07:33)
[2022-10-14] MEDS: OLANZapine ZYDIS 5 MG ORALLY DIS. TAB PO PRN (09:24)
--- NOTE | 2022-10-14 09:25 | Psychiatric Progress Note ---
Date of Service October 14, 2022 Impression / Recommendations Impression 22 year old with a history of BPAD who was admitted for acute kristopher with aggression and decreased sleep on 302 commitment. Diagnostically consistent with acute kristopher d/t BPAD, may also be component of nicotine withdrawal given significant vaping use prior to admission. The patient is deemed unstable and requires psychiatric hospitalization for diagnostic clarification, safety and stabilization, medication management and development of further coping skills. MNPR due to acute kristopher with poor boundaries with peers 10/14/2022: remains hyperverbal with poor sleep consistent with kristopher however he is taking his medications, attending groups, has not been aggressive, and is reality-based in discussions about his short-term and long-term plans and ways that he can provide for his self-care, nutrition, housing, safety and health care needs. No longer with evidence of paranoia or persecutory delusions, still with some grandiosity though this has lessened today. He is unlikely to meet 303 criteria and unfortunately he is not aggreeable to considering ongoing hospitalization after that time on a voluntary status. For now will to continue to monitor for any symptoms or behaviors that would meet 303 criteria, otherwise he will need to be discharged tomorrow before his 302 commitment expires. He is tolerating Depakote so far, unclear if GI symptoms related to this versus GERD so will continue to monitor. Given limitation of 302 commitment will check Depakote level and fasting lipid panel and glucose tomorrow. (1) Bipolar 1 disorder with moderate kristopher: (2) Nicotine use disorder: (3) Cannabis use disorder: Plan 10/14/22: Increase to Depakote DR 500mg BID. Continue olanzapine. Fasting lipid panel, glucose and valproic acid level tomorrow morning. 10/13/22: Start Depakote DR 250mg BID. Continue olanzapine. Will get fasting lipid panel and glucose in a few days with Depakote level check. 10/12/22: Based on initial response to oral olanzapine given in the ED, will start olanzapine 10 mg PO BID, continuing olanzapine ODT 5 mg or IM 5 mg Q6HR PRN kristopher or psychosis Will need to provide substantial nicotine replacement to prevent withdrawal, but pt will accept only gum so this may be only partially effective Suicide Risk Level Suicide Risk Level: Low (q15 min observation checks) (consistently denies SI. Agrees to let nursing know if he feels unsafe or unable to remain safe ) Risk Factors Assessment Male: Yes : Yes Do You Have Access To A Gun?: No (bro has gun but has secured) Health Problems: No Mental Health Diagnoses: Yes Substance Use Disorders: Yes Previous Attempt: No Previous Psychiatric Hospitalization: Yes Protective Factors Assessment Employed: No (Quit job last week, according to pt's Dad) Supportive Family: Yes Interval History Identifying Information FLIP FAUSTIN is a 22-year-old M who currently lives with his mother, father, and older brother, has a history of bipolar disorder, and was admitted on 10/11/22 19:21 on a 302 involuntary commitment for kristopher and aggression. Chief Complaint "It's helping, oh look there's my ball under the table I've been looking all over for that!". Review of Systems Sleep Information Total Hours of Sleep: 4.75 Sleep Comments: Complained of upset stomach and recieved Maalox; up again to bathroom and again to get a drink and nicotine gum Meal Information Percent Meal Consumed - Breakfast: 89 Percent Meal Consumed - Lunch: 100 Percent Meal Consumed - Dinner: 100 Subjective Subjective Patient was seen & assessed and interval progress reviewed with treatment team nursing and social work. Slept last evening on the couch in the group room and cooperative with room change. Slept 4.75 hours overnight. Flip disagrees with this stating he is sure he slept 7.5 hours. He feels he is no longer manic and maybe "hypomania but I'm coming down from kristopher, when I'm manic I can't remember anything or think clearly and I can do that now". Remains perseverative on vaping use being the cause for "blacking out and saying mean stuff to my family" but does agree that vaping likely sets off his kristopher. Remains cooperative with taking his medication and likes the depakote stating he feels less shaky today and demonstrates no tremor. Denies any medication side effects, likes that HS olanzapine helps him fall right asleep. Reports some acid reflux today and requests order for TUMS but states this has been a problem before and he doesn't think it's from the Depakote. Discussed option to sign in for voluntary treatment once 302 commitment expires which he is opposed to. States "I hate being in the hospital it's like a fdc but I promise I'll see my psychiatrist and do therapy and take my medication outside the hospital and come do the labs, I just can't stay in here". Tells me he will remember to take his medication by using his phone alarm and pill box his father bought him. Says if his parents don't allow him to return home he will stay with his friend Reyes. No episodes of agitation or aggression. Attending groups but quickly gets distracted and often comes and goes during the group a few times. Physical Exam Psychiatric Orientation: alert and oriented x 3 Apperance: appropriately dressed and appropriately groomed Eye Contact: + fair eye contact Motor Behavior: steady gait and station and + psychomotor agitation (walking and moving a lot) Speech: + pressured speech (hyperverbal ) Mood: + anxious mood Thought Process: + circumstantial thought process and + perseveration (about nicotine role in kristopher) Thought Content: + delusions (grandiose) Suicidal Thoughts: denies suicidal thoughts Homicidal Thoughts: denies homicidal thoughts Hallucinations: no auditory hallucinations and no visual hallucinations Cognition: recent memory grossly intact and remote memory grossly intact; + attention not intact Estimated Intelligence: average estimated intelligence Insight: + impaired insight Judgment: + impaired judgement Vital Signs (Past 24 Hours) Last Vital Signs Temp 36.6 C 10/14/22 06:32 Pulse 91 H 10/14/22 06:32 Resp 16 10/14/22 06:32 BP 118/80 10/14/22 06:32 Pulse Ox 98 10/11/22 05:47 O2 Del Method 10/11/22 05:47 Results & Data ([facility]) Current Inpatient Medications Current Inpatient Medications: Current Inpatient Medications Acetaminophen (Acetaminophen 325 Mg Tab) 650 mg PO Q4H PRN PRN Reason: Headache or Minor Fever Stop: 11/10/22 19:41 Al Hydrox/Mg Hydrox/Simethicone (Aluminum/Magnesium Susp 30 Ml Udc) 30 ml PO Q4H PRN PRN Reason: GI Upset Stop: 11/10/22 19:41 Last Admin: 10/14/22 01:50 Dose: 30 ml Benzonatate (Benzonatate 100 Mg Capsule) 100 mg PO TID PRN PRN Reason: Cough Stop: 11/11/22 11:32 Bismuth Subsalicylate (Bismuth Subsalicylate Liqd 236 Ml) 15 ml PO PRN PRN PRN Reason: Loose Stool Stop: 11/10/22 19:41 Divalproex Sodium (Divalproex Delay Release 250 Mg Tabec) 250 mg PO BID [place] Stop: 11/12/22 11:44 Last Admin: 10/14/22 07:33 Dose: 250 mg Hydroxyzine HCl (Hydroxyzine Hcl 25 Mg Tab) 50 mg PO HSZ PRN PRN Reason: Insomnia Stop: 11/10/22 19:41 Last Admin: 10/12/22 21:11 Dose: 50 mg Hydroxyzine HCl (Hydroxyzine Hcl 25 Mg Tab) 25 mg PO Q4H PRN PRN Reason: Anxiety Stop: 11/10/22 19:41 Magnesium Hydroxide (Magnesium Hydroxide Susp 30 Ml Udc) 30 ml PO DAILY PRN PRN Reason: Constipation Stop: 11/10/22 19:41 Menthol (Cough Drop (Sugar Free) Huy 24 Huy/1 Box) 1 huy BUCCAL Q2HWA PRN PRN Reason: Sore Throat Stop: 11/11/22 11:32 Last Admin: 10/13/22 22:02 Dose: 1 huy Nicotine Polacrilex (Nicotine Polacrilex 2 Mg Gum) 2 piece MT PRN PRN PRN Reason: Nicotine Withdrawal Stop: 11/11/22 11:31 Last Admin: 10/14/22 07:37 Dose: 2 piece Olanzapine (Olanzapine Zydis 5 Mg Orally Dis. Tab) 5 mg PO Q6 PRN PRN Reason: kristopher, psychosis Stop: 11/10/22 19:42 Last Admin: 10/14/22 09:24 Dose: 5 mg Olanzapine (Olanzapine Zydis 10 Mg Orally Dis. Tab) 10 mg PO BID [place] Stop: 11/11/22 11:44 Last Admin: 10/14/22 07:34 Dose: 10 mg Sodium Chloride (Sodium Chloride 0.65% Na Soln 45 Ml (Reardan)) 1 - 2 sprays NA PRN PRN PRN Reason: Nasal Dryness/Congestion Stop: 11/10/22 19:41 Last Admin: 10/12/22 07:29 Dose: 1 sprays Mental Health & Subst Abuse Tx Psychiatrist Name of Psychiatrist: [facility] Psychiatrist's Date Of Appointment With Psychiatric Provider: 10/26/2022 Time of Appointment with Psychiatrist: 9am Psychiatric Appointment Comment: [address] [place] [address] Therapist Name of Therapist: Otto Crow Therapist's Date of Therapist Appointment: 10/27/22 Time of Therapist Appointment: 11:30 AM Therapy Appointment Comment: [address], [address], [place] [address] [employer] And Communications Maintainer Name of Signal And Communications Maintainer: none Post Discharge Appointments Primary Care Physician Name Of Family Doctor/PCP: none
[2022-10-14] MEDS: CALCIUM CARBONATE 500 MG CHEWABLE TAB PO PRN ×2 (10:25→22:24)
[2022-10-14] MEDS ORDERED: risperiDONE 1 MG TABLET PO PRN (12:21)
[2022-10-14] MEDS: LORazepam 1 MG TAB PO PRN ×2 (12:59→21:16)
[2022-10-14] MEDS: DIVALPROEX DELAY RELEASE 500 MG TAB PO SCH (21:13)
[2022-10-14] MEDS: OLANZapine 10 MG TAB PO SCH (21:13)
[2022-10-15] MEDS: COUGH DROP (SUGAR FREE) LOZ 24 LOZ/1 BOX BUCCAL PRN (06:34)
[2022-10-15] MEDS: LORazepam 1 MG TAB PO PRN ×2 (08:03→14:02)
[2022-10-15] MEDS: DIVALPROEX DELAY RELEASE 500 MG TAB PO SCH (08:03)
[2022-10-15] MEDS: OLANZapine 10 MG TAB PO SCH (08:03)
[2022-10-15 09:12] LABS: Chol HDL Ratio 2.8 (0-5)
[2022-10-15] MEDS: NICOTINE POLACRILEX 2 MG GUM MT PRN ×3 (09:16→15:38)
--- NOTE | 2022-10-15 12:43 | Discharge Summary ---
Date of Service October 15, 2022 History of Present Illness 22 y/o man with a history of bipolar disorder who has been "vaping" a great deal with the intent of "getting at least 60 mg of nicotine" per day, believing that this helps him think more clearly and to stay awake longer. He has also been using cannabis heavily as nonprescribed "medical marijuana" for knee pain. He stopped medication "a long time ago" because he "didn't need it". He hasn't slept much at all for the past 6 days and arguments with his father over the vaping and cannabis have been escalating until he made threats. He reports that "the FBI broke down the door" and took him to a cell where they tied him to a bed and injected him with medication. Later he acknowledged it could have been local police who "knocked on the door then pushed in" and, for all he knows, might have broken it. He readily acknowledges bitter arguments with his father but doesn't agree that anyone could think he was threatening. ED notes clearly document threatening, aggressive behavior including spitting at staff. Pt did agree last night to oral olanzapine which appeared to help him deescalate and to get some sleep. He is amenable to continuing it and says he'll do anything we recommend except take risperidone, which he says caused a hand tremor. Pt presents as excited and elevated, at times expansive and at times irritable. He is very talkative with decreased latency of speech, increased rate and duration, and is a bit loud but not shouting. 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 It is in the process of developing "kiley [employer]". 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 He is somewhat evasive about whether he lives on his own or at home (he lives at home) or whether he's attending college or not (he's not, saying he completed a bachelor's degree in 2 years). Physical Exam Vital Signs (Past 24 Hours) Last Vital Signs Temp 36.4 C L 10/15/22 06:38 Pulse 64 02/03/23 06:38 Resp 16 10/15/22 06:38 BP 125/85 10/15/22 06:38 Pulse Ox 98 10/11/22 05:47 O2 Del Method 10/11/22 05:47 See admission H&P and DOD summary. Principal Diagnosis Bipolar Affective Disorder, episode of acute kristopher Psychiatric Data See daily stay summary. In short, patient was engaged with the social/therapeutic milieu of the unit, safety was maintained and the patient was cooperative with care. He was admitted on a 302 commitment which on 10/15/2022 at 5:53pm. He initially presented with symptoms of acute kristopher which gradually improved over his admission. He continued to demonstrate decreased sleep (~5.5 hours per night) toward the end of his stay, consistent with resolving hypomania but his rapid rate of speech, delusions, paranoia, and psychomotor agitation resolved. He had no episodes of aggression or threatening behavior, consistently denied SI and HI, behavior was organized and meet all of care needs including health, safety, nutrition and hygiene. He was not felt to meet 303 commitment criteria given this and while he was encouraged to sign in for ongoing voluntary treatment to continue to work on improving his sleep he declined. Medication changes included initiation of olanzapine, Depakote DR and ativan as needed for agitation/anxiety/insomnia and they tolerated this well. Baseline labs of CBC with diff, LFTs, electrolytes, and weight were preformed and WNL. Depakote level at discharge was 44 mcg/ml. Recommend repeat CBC with diff, valproic acid level and LFTs at one month with consideration at that time for futher dose titration versus consolidation to ER formulation. Baseline labs of fasting glucose, fasting lipid profile, and weight were preformed and WNL. Recommend repeat weight in one month. Recommend repeat fasting glucose and fasting lipid profile every 12 weeks and then annually. If symptoms arise recommend checking BP, EKG, prolactin level as clinically indicated or relevant. Reviewed and he understands that lorazepam to be used to ensure ongoing resolution of symptoms of kristopher with goal of taper to discontinuation within the next 2-4 weeks. He understands that lorazepam has an addictive potential, needs to be safely secured so others cannot access it, he should not drive or operate heavy machinery while taking it and that risks include potential for fatal respiratory depression if combined with alcohol or opioids. He confirms no use of alcohol and will avoid this as well as other substances including nicotine and cannabis after discharge. A family session was held and safety plan was completed prior to discharge. On the day of discharge he stated his mood was "good, I'm happy to be off the nicotine" and remained future-oriented including seeing his family, relaxing at home, playing chess and maybe taking some time off from school after he finishes his courses in the next two months, avoiding nicotine and cannabis use and engaging in aftercare appointments for psychiatry and therapy. Day of Discharge Assessment Today the patient voices readiness for discharge. They note improvement in mood and anxiety. They deny thoughts of harm to self or others. Thoughts are organized and they are clinically improved from admission. There is no evidence of psychosis. They improved in the hospital with support and medication adjustments. They agree to take medications as prescribed and keep follow-up appointments. At the time of the discharge they are deemed to be stable and appropriate for outpatient level of care. They are not deemed to be at imminent risk of harm to self or others. They are aware of emergency and crisis services. Knows to call 911 or go to nearest emergency care center if in a crisis which cannot be handled as an outpatient. Transition of Care Transition Of Care Record: was reviewed with the patient Advance Directives Advance Directives Information Provided: Yes Advance Directives: No Mental Health Advance Directive: No Advance Directives on File: No Living Will: No Power of Whitewasher: No Advance Directives Reason:: Declines as Mental Health Visit. Suicide Risk Level Suicide Risk Level Comments: Acute risk is low given improvement in mood and denial of SI, lack of access to lethal means, plan to avoid substance use, improvement in sleep, hopefulness, improvement in psychosis. Chronic risk is low given few non-modifiable risk factors and with multiple protective factors including student, good social support, sense of responsibility to family and social supports, outpatient care in place, positive coping skills, positive problem solving, capacity to establish therapeutic alliance, willingness to engage with treatment, capacity for self-observation. Counseled on ways to reduce acute and chronic risk including engaging with outpatient providers, using safety plan if needed, utilizing supports, taking medication, avoiding substances and using coping skills. Modifiable risk factors of kristopher, substance use were addressed during hospitalization through development of new coping skills, family meeting, safety planning, and medication adjustments. Risk Factors Assessment Male: Yes : Yes Do You Have Access To A Gun?: No (bro has gun but has secured) Health Problems: No Mental Health Diagnoses: Yes Substance Use Disorders: Yes Previous Attempt: No Family History of Suicide: No Previous Psychiatric Hospitalization: Yes Hopelessness: No Protective Factors Assessment Employed: No (Quit job last week, according to pt's Dad) Stable Relationships: Yes Supportive Family: Yes Tobacco Cessation at Discharge Tobacco Cessation Medication Prescribed at Discharge: Offered & Prescribed Discharge Data Lab Results 10/10/22 10/10/22 10/10/22 19:04 19:04 19:04 WBC RBC Hgb Hct MCV MCH MCHC RDW Std Deviation RDW Coeff of Solitario Plt Count MPV Immature Gran % (Auto) Neut % (Auto) Lymph % (Auto) [place] % (Auto) Eos % (Auto) Baso % (Auto) Neut # (Auto) Lymph # (Auto) [place] # (Auto) Eos # (Auto) Baso # (Auto) Immature Gran # (Auto) Sodium Potassium Chloride Carbon Dioxide Anion Gap BUN Creatinine Est Cr Clr Drug Dosing Est GFR ( Amer) Est GFR (Non-Af Amer) BUN/Creatinine Ratio Glucose Fasting Glucose Calcium Total Bilirubin AST ALT Alkaline Phosphatase Total Protein Albumin Globulin Albumin/Globulin Ratio Triglycerides Cholesterol LDL Cholesterol, Calc VLDL Cholesterol, Calc HDL Cholesterol Cholesterol/HDL Ratio TSH Free T4 Urine Color Yellow Urine Appearance Clear Urine pH 6.5 Ur Specific [place] 1.025 Urine Protein Trace H Urine Glucose (UA) Negative Urine Ketones Trace H Urine Blood Negative Urine Nitrite Negative Urine Bilirubin Negative Urine Urobilinogen Negative Ur Leukocyte Esterase Negative Urine WBC (Auto) 1-5 Urine RBC (Auto) 0-4 U Hyaline Cast (Auto) 5-10 H U Epithel Cells (Auto) 10-20 H Urine Bacteria (Auto) Negative Salicylates Urine Opiates Screen Neg Ur Methadone, Qual Neg Acetaminophen Urine Barbiturates Neg Valproic Acid Ur Phencyclidine (PCP) Neg U Amphetamin/Meth Scrn Neg MDMA (Ecstasy) Screen Neg U Benzodiazepines Scrn Neg Ur Cocaine Metabolite Neg U Marijuana (THC) Screen Pos H U Marijuana THC Carboxy 1502 H Drug Screen Comment SEE NOTE Ethyl Alcohol mg/dL SARS-CoV-2, RNA, NAAT 10/10/22 10/10/22 10/10/22 19:30 19:30 19:30 WBC 8.46 RBC 5.18 Hgb 16.6 Hct 46.9 MCV 90.5 MCH 32.0 MCHC 35.4 RDW Std Deviation 42.9 RDW Coeff of Solitario 13.0 Plt Count 311 MPV 9.0 L Immature Gran % (Auto) 0.1 Neut % (Auto) 60.5 Lymph % (Auto) 30.7 [place] % (Auto) 6.5 Eos % (Auto) 1.8 Baso % (Auto) 0.4 Neut # (Auto) 5.12 Lymph # (Auto) 2.60 [place] # (Auto) 0.55 Eos # (Auto) 0.15 Baso # (Auto) 0.03 Immature Gran # (Auto) 0.01 Sodium 141 Potassium 3.9 Chloride 103 Carbon Dioxide 28 Anion Gap 10 BUN 12 Creatinine 1.07 Est Cr Clr Drug Dosing Not Reportable Est GFR ( Amer) 114.4 Est GFR (Non-Af Amer) 98.7 BUN/Creatinine Ratio 11.2 Glucose 120 H Fasting Glucose Calcium 9.5 Total Bilirubin 1.0 AST 25 ALT 20 Alkaline Phosphatase 57 Total Protein 7.5 Albumin 4.7 Globulin 2.8 Albumin/Globulin Ratio 1.7 Triglycerides Cholesterol LDL Cholesterol, Calc VLDL Cholesterol, Calc HDL Cholesterol Cholesterol/HDL Ratio TSH 0.209 L Free T4 1.19 Urine Color Urine Appearance Urine pH Ur Specific [place] Urine Protein Urine Glucose (UA) Urine Ketones Urine Blood Urine Nitrite Urine Bilirubin Urine Urobilinogen Ur Leukocyte Esterase Urine WBC (Auto) Urine RBC (Auto) U Hyaline Cast (Auto) U Epithel Cells (Auto) Urine Bacteria (Auto) Salicylates Urine Opiates Screen Ur Methadone, Qual Acetaminophen Urine Barbiturates Valproic Acid Ur Phencyclidine (PCP) U Amphetamin/Meth Scrn MDMA (Ecstasy) Screen U Benzodiazepines Scrn Ur Cocaine Metabolite U Marijuana (THC) Screen U Marijuana THC Carboxy Drug Screen Comment Ethyl Alcohol mg/dL SARS-CoV-2, RNA, NAAT 10/10/22 10/10/22 10/11/22 19:30 19:30 16:13 WBC RBC Hgb Hct MCV MCH MCHC RDW Std Deviation RDW Coeff of Solitario Plt Count MPV Immature Gran % (Auto) Neut % (Auto) Lymph % (Auto) [place] % (Auto) Eos % (Auto) Baso % (Auto) Neut # (Auto) Lymph # (Auto) [place] # (Auto) Eos # (Auto) Baso # (Auto) Immature Gran # (Auto) Sodium Potassium Chloride Carbon Dioxide Anion Gap BUN Creatinine Est Cr Clr Drug Dosing Est GFR ( Amer) Est GFR (Non-Af Amer) BUN/Creatinine Ratio Glucose Fasting Glucose Calcium Total Bilirubin AST ALT Alkaline Phosphatase Total Protein Albumin Globulin Albumin/Globulin Ratio Triglycerides Cholesterol LDL Cholesterol, Calc VLDL Cholesterol, Calc HDL Cholesterol Cholesterol/HDL Ratio TSH Free T4 Urine Color Urine Appearance Urine pH Ur Specific [place] Urine Protein Urine Glucose (UA) Urine Ketones Urine Blood Urine Nitrite Urine Bilirubin Urine Urobilinogen Ur Leukocyte Esterase Urine WBC (Auto) Urine RBC (Auto) U Hyaline Cast (Auto) U Epithel Cells (Auto) Urine Bacteria (Auto) Salicylates < 3.0 L Urine Opiates Screen Ur Methadone, Qual Acetaminophen < 3 L Urine Barbiturates Valproic Acid Ur Phencyclidine (PCP) U Amphetamin/Meth Scrn MDMA (Ecstasy) Screen U Benzodiazepines Scrn Ur Cocaine Metabolite U Marijuana (THC) Screen U Marijuana THC Carboxy Drug Screen Comment Ethyl Alcohol mg/dL < 10.0 SARS-CoV-2, RNA, NAAT NEGATIVE 10/15/22 10/15/22 07:55 07:55 WBC RBC Hgb Hct MCV MCH MCHC RDW Std Deviation RDW Coeff of Solitario Plt Count MPV Immature Gran % (Auto) Neut % (Auto) Lymph % (Auto) [place] % (Auto) Eos % (Auto) Baso % (Auto) Neut # (Auto) Lymph # (Auto) [place] # (Auto) Eos # (Auto) Baso # (Auto) Immature Gran # (Auto) Sodium Potassium Chloride Carbon Dioxide Anion Gap BUN Creatinine Est Cr Clr Drug Dosing Est GFR ( Amer) Est GFR (Non-Af Amer) BUN/Creatinine Ratio Glucose Fasting Glucose 90 Calcium Total Bilirubin AST ALT Alkaline Phosphatase Total Protein Albumin Globulin Albumin/Globulin Ratio Triglycerides 81 Cholesterol 136 LDL Cholesterol, Calc 72 VLDL Cholesterol, Calc 16 HDL Cholesterol 48 Cholesterol/HDL Ratio 2.8 TSH Free T4 Urine Color Urine Appearance Urine pH Ur Specific [place] Urine Protein Urine Glucose (UA) Urine Ketones Urine Blood Urine Nitrite Urine Bilirubin Urine Urobilinogen Ur Leukocyte Esterase Urine WBC (Auto) Urine RBC (Auto) U Hyaline Cast (Auto) U Epithel Cells (Auto) Urine Bacteria (Auto) Salicylates Urine Opiates Screen Ur Methadone, Qual Acetaminophen Urine Barbiturates Valproic Acid 44 L Ur Phencyclidine (PCP) U Amphetamin/Meth Scrn MDMA (Ecstasy) Screen U Benzodiazepines Scrn Ur Cocaine Metabolite U Marijuana (THC) Screen U Marijuana THC Carboxy Drug Screen Comment Ethyl Alcohol mg/dL SARS-CoV-2, RNA, NAAT Hospital Course (1) Bipolar 1 disorder with moderate kristopher: (2) Nicotine use disorder: (3) Cannabis use disorder: Plan 10/14/22: Increase to Depakote DR 500mg BID. Continue olanzapine. Fasting lipid panel, glucose and valproic acid level tomorrow morning. 10/13/22: Start Depakote DR 250mg BID. Continue olanzapine. Will get fasting lipid panel and glucose in a few days with Depakote level check. 10/12/22: Based on initial response to oral olanzapine given in the ED, will start olanzapine 10 mg PO BID, continuing olanzapine ODT 5 mg or IM 5 mg Q6HR PRN kristopher or psychosis Will need to provide substantial nicotine replacement to prevent withdrawal, but pt will accept only gum so this may be only partially effective Mental Health & Subst Abuse Tx Psychiatrist Name of Psychiatrist: [facility] Psychiatrist's Date Of Appointment With Psychiatric Provider: 10/26/2022 Time of Appointment with Psychiatrist: 9am Psychiatric Appointment Comment: [address] [place] [address] Therapist Name of Therapist: Otto Crow Therapist's Date of Therapist Appointment: 10/27/22 Time of Therapist Appointment: 11:30 AM Therapy Appointment Comment: [address], [address], [place] [address] Real Estate Investment Analyst Name of Real Estate Investment Analyst: none Post Discharge Appointments Primary Care Physician Name Of Family Doctor/PCP: none Smoking Cessation Counseling Tobacco Cessation Medication Prescribed at Discharge: Offered & Prescribed Discharge Plan Discharge Items Patient Disposition: Home - Self-Care Reason For Visit: BIPOLAR DISORDER Discharge Diagnosis: Bipolar Affective Disorder, episode of acute kristopher Condition on Discharge: Good Activity: Resume your previous activity Non-emergency contact: Primary Care Provider, Psychiatrist and Therapist Call non-emergency contact if: you have any medication questions and your symptoms worsen Follow-up/Referrals: PCP,NO [Primary Care Provider] - Diet: Regular Addtl Attending Provider Instructions: SPECIAL CARE INSTRUCTIONS: 1. Follow through with your scheduled aftercare appointments. If unable to keep an appointment, please call to reschedule. 2. Take your medication only as prescribed. Medication should not be changed or stopped without the approval of your doctor. In the event of worsening symptoms or concerns about side effects, contact your doctor immediately. 3. Utilize new healthy coping skills, anger management skills, and stress management skills learned during your hospitalization. Journal feelings and process them with a support person. Identify stressors or situations that may result in relapse, deterioration or inappropriate behaviors and develop a plan to deal with those issues. 4. If your coping skills are ineffective and you are in crisis, contact your outpatient providers for direction. If unable to reach your providers, please call the [facility] CRISIS LINE AT , go to the [facility] walk-in center at [address], [address], [place], or go to the closest Emergency Room. 5. Avoid alcohol and un-prescribed drugs. 6. You have been provided with the Mental Health Advance Directives Pamphlet for your review. 7. Your condition is stable for discharge to outpatient level of care, but recovery is an ongoing process. Ifthoughts to harm yourself or others return, follow the safety plan developed during your stay. Planning for a safe return home includes securing weapons. Our treatment team recommends weaponsbe removed from the home until your outpatient provider reassesses your progress. In rare cases where the items themselvescannot be removed, guns and ammunitionshould be secured separatelyand keys stored by a reliable personoutside of the home. If you were admitted on an involuntary commitment, the police or other legal authorities may be involved in this process. AFTERCARE APPOINTMENTS: * Please call your insurance company prior to your scheduled appointment to confirm your aftercare providers are covered. Take your insurance information to your appointments. WHO TO CALL AND WHEN: Medical Emergencies: For questions or emergencies related to your hospital stay, please contact the Inpatient Behavioral Health Unit at [phone]. A outreach clinician is on-call 04/04 for the Behavioral Health Unit for emergencies At any time you feel your situation is an emergency, you may also call 911 immediately. Pending Studies at Discharge: No Stand-Alone Forms: My [employer], Smoking Cessation Medications and DC Order Prescriptions: New nicotine (polacrilex) [Nicorette] 2 mg Gum 4 mg MT Q1H PRN (Reason: nicotine cravings) 30 Days Qty: 50 0RF divalproex 500 mg Tablet,Delayed Release (Dr/Ec) 500 mg PO BID 30 Days Qty: 60 0RF lorazepam 1 mg Tablet 1 mg PO BID PRN (Reason: agitation/anxiety/insomnia) 30 Days Qty: 60 0RF olanzapine 10 mg Tablet 10 mg PO BID 30 Days Qty: 60 0RF Discharge Orders: Discharge Order (Routine); Ordered 10/15/22 Ordered By: Rayna Meyer/Other Patient Handouts: How to Control Your Temper, Staying Smoke-Free, Treating Bipolar Disorder, Kicking the Smoking Habit, E Cigarettes and Vaping Admission Data Admit Date/Time: 10/11/22 19:21 Attending Provider: Rayna Haro Admit Provider: Erasmo Rivas Primary Care Provider: PCP,NO Other Interventions: Discharge Summary Assessment (RN) Last Done: 10/15/22 15:09 PSY Interdisciplinary Discharge Planning Last Done: 10/15/22 15:10 Coding Level of Care Code 61031 D/C day mgmt > 30 min Diagnoses Bipolar 1 disorder with moderate kristopher F31.12 Nicotine use disorder F17.200 Cannabis use disorder F12.90 Time Spent (min) 60
== END 2022-10-15 16:35 | disposition home or self-care (01) | DRG 885 ==
LOC: ED 18:49 → 3S 10-11 19:21 → SUATTDRO 10-11 19:21 → 3S 10-11 19:22